=== PATIENT | female | born 1945 | race Caucasian/White ===

== ENCOUNTER → 2018-12-09 | Outpatient (CLI) | payer MEDICARE ==
[~2018-12-09] MED LIST: ASPI-266 PO; BIOT25006 PO; BUME1TAB4 PO; CALC-850 PO; ESTR0.5T3 PO; METO25TA PO; MULT-1029 PO; OMEG-11 PO; POTA20TA15 PO; THYR120T2 PO
== END ==
LOC: CARD 11:45
PROVIDERS: ATTEND Internal Medicine
DX: I49.9 Cardiac arrhythmia, unspecified (principal)
CPT/HCPCS: 93225; 93226

== ENCOUNTER → 2019-06-22 | Outpatient (CLI) | payer MEDICARE ==
--- NOTE | 2019-06-22 15:39 | Diagnostic Imaging Report ---
INDICATION: Left knee pain and swelling. Time of exam 2:58 p.m. FINDINGS: Three views of the left knee were obtained. Alignment is normal. Joint spaces are well maintained. Articular surfaces are smooth. No fracture or dislocation is identified. There appears to be a small joint effusion. IMPRESSION: Small joint effusion. No acute bony abnormality is detected. Dictated by: Dictated on workstation # [id number]
== END ==
LOC: RAD 14:16
PROVIDERS: ATTEND Physician Assistant
DX: M25.462 Effusion, left knee (principal)
CPT/HCPCS: 73562

== ENCOUNTER → 2021-07-11 | Outpatient (CLI) | payer MEDICARE ==
--- NOTE | 2021-07-11 11:16 | Diagnostic Imaging Report ---
INDICATION: Lower right-sided back pain.. TECHNIQUE: AP and bilateral oblique views sacroiliac joints, 10:52 AM. CORRELATION STUDY: 06/13/2015 FINDINGS: SI joints overall are fairly unremarkable. No guzman erosion or sclerotic changes. No significant bony fusion. There is degenerative change of the visualized lower L4-L5 and L5-S1 disc spaces. The partially visualized bilateral hip joints demonstrate a mild to moderately advanced degenerative changes left slightly greater than right. IMPRESSION: 1. Unremarkable appearance of the bilateral sacroiliac joint. Advanced degenerative change visualized lower lumbar disc spaces and bilateral hip joints. Dictated by: Dictated on workstation # [id number]
--- NOTE | 2021-07-11 11:17 | Diagnostic Imaging Report ---
INDICATION: Lower right-sided back pain. TECHNIQUE: AP, lateral, and spot imaging of the lumbar spine CORRELATION STUDY: 06/13/2015. FINDINGS: Mild leftward curvature is present. Minimal leftward subluxation of L3 in regards to L4. There is also grade 1-2 spondylolisthesis of L4 on L5, offset of 12 mm. Trace anterolisthesis of L3 on L4. Lumbar vertebral body heights overall are fairly well-maintained. There is rather advanced multilevel lumbar spondylosis. This includes marked disc space narrowing at L4-L5 and to a lesser degree at L5-S1. Mild endplate lipping is present. Visualized sacroiliac joints are unremarkable. Only partially visualized, there does appear to be mild to moderately advanced degenerative change of both hips. IMPRESSION: No radiographic evidence for acute bony abnormality of the lumbar spine. Moderately prominent multilevel lumbar spondylosis. Dictated by: Dictated on workstation # [id number]
== END ==
LOC: RAD 10:18
PROVIDERS: ATTEND Internal Medicine
DX: M47.816 Spondylosis without myelopathy or radiculopathy, lumbar region (principal)
CPT/HCPCS: 72100; 72202